=== PATIENT | female | born 1945 | race Caucasian/White ===

== ENCOUNTER → 2016-09-12 | Outpatient (CLI) | payer OTHER ==
[~2016-09-12] MED LIST: ALEN70TA2 PO; BISA10SU38 PR; BOOST PO; CALC500C3; CHOL1CAP57 PO; CYAN500T PO; DICL1GEL28 TD; FERR1TAB13 PO; FLV1 PO; GABA-113 PO; LRS10 PO; METO25TA3 PO; MOML PO; MULT-116 PO; OXGN; POLY99.02 OP; PRNJ PO; SENN-65 PO; SULF800T23 PO; TYLOTC500 PO; ULT/50 PO; [UNRECOGNIZED DRUG - OTHER] INJ
== END ==
LOC: C.LABCC 17:25
PROVIDERS: ATTEND Internal Medicine
DX: R50.9 Fever, unspecified (principal); R05 Cough

== ENCOUNTER → 2016-10-07 | Outpatient (CLI) | payer OTHER | LOC: C.LABCC 09:37 | PROVIDERS: ATTEND Internal Medicine | DX: L89.90 Pressure ulcer of unspecified site, unspecified stage (principal) ==

== ENCOUNTER → 2016-10-08 | Outpatient (CLI) | payer OTHER ==
[2016-10-08 08:27] LABS: BASO % 0.4 %; BASO ABS # 0.03 K/uL (0-0.2); COMPLETE YES; EOS % 2.4 %; HEMATOCRIT 36.3 % (37-47); IG% 0.9 %; LYMPH % 24.3 %; LYMPH ABS # 2.05 K/uL (1.2-3.4); MEAN CELL VOLUME 97.1 fL (80-100); MEAN PLATELET VOLUME 11.1 fL (7.4-10.4); MONO % 14.5 %; NEUT % 57.5 %; PLATELET COUNT 292 K/uL (130-400); RED BLOOD COUNT 3.74 M/uL (4.2-5.4); WHITE BLOOD COUNT 8.43 K/uL (4.8-10.8)
[2016-10-08 08:38] LABS: BLOOD UREA NITROGEN 13 mg/dl (7-18); BUN/CREATININE RATIO 18.4 (10-20); CARBON DIOXIDE 29 mmol/L (21-32); CHLORIDE 107 mmol/L (98-107); CREATININE 0.73 mg/dl (0.60-1.20); GLUCOSE 90 mg/dl (70-99); SODIUM 142 mmol/L (136-145)
[2016-10-08 09:00] LABS: CALCIUM 8.6 mg/dl (8.5-10.1)
== END ==
LOC: C.LABCC 08:03
PROVIDERS: ATTEND Internal Medicine
DX: H92.01 Otalgia, right ear (principal); R05 Cough

== ENCOUNTER → 2016-11-25 | Outpatient (CLI) | payer OTHER | LOC: C.LABCC 12:49 | PROVIDERS: ATTEND Internal Medicine | DX: T14.8 Other injury of unspecified body region (principal); X58.XXXA Exposure to other specified factors, initial encounter ==

== ENCOUNTER → 2017-01-12 | Outpatient (CLI) | payer OTHER ==
[2017-01-13 02:37] LABS: URINE APPEARANCE TURBID (CLEAR); URINE BILIRUBIN NEG (NEG); URINE COLOR DK YELLOW; URINE EPITHELIAL CELL AUTO >30 /lpf (0-5); URINE NITRITE POS (NEG); URINE PH >= 9.0 (4.5-7.5); URINE SPECIFIC GRAVITY 1.018 (1.000-1.030); UROBILINOGEN NEG (NEG)
[2017-01-13 02:55] LABS: MANUAL MICROSCOPIC REQUIRED? NO; REVIEW REQ? YES
[2017-01-13 02:56] LABS: SULFASALICYLIC ACID NEG (NEG)
== END ==
LOC: C.LABCC 19:00
PROVIDERS: ATTEND Internal Medicine
DX: R50.9 Fever, unspecified (principal); R39.9 Unspecified symptoms and signs involving the genitourinary system

== ENCOUNTER → 2017-01-18 | Outpatient (CLI) | payer OTHER ==
[2017-01-18 17:00] LABS: URINE APPEARANCE CLOUDY (CLEAR); URINE BILIRUBIN NEG (NEG); URINE COLOR YELLOW; URINE NITRITE POS (NEG); URINE PH 8.5 (4.5-7.5); URINE SPECIFIC GRAVITY 1.014 (1.000-1.030); UROBILINOGEN NEG (NEG)
[2017-01-18 17:07] LABS: MANUAL MICROSCOPIC REQUIRED? NO; REVIEW REQ? YES; SULFASALICYLIC ACID NEG (NEG)
== END ==
LOC: C.LABCC 09:58
PROVIDERS: ATTEND Internal Medicine
DX: R50.9 Fever, unspecified (principal)

== ENCOUNTER → 2017-01-22 | Outpatient (CLI) | payer OTHER | END | disposition home or self-care (01) | LOC: C.LABCC 10:11 | PROVIDERS: ATTEND Internal Medicine | DX: T81.9XXA Unspecified complication of procedure, initial encounter (principal); X58.XXXA Exposure to other specified factors, initial encounter ==

== ENCOUNTER → 2017-01-23 | Outpatient (CLI) | payer OTHER ==
[2017-01-23 09:29] LABS: BLOOD UREA NITROGEN 27 mg/dl (7-18); CREATININE 0.79 mg/dl (0.60-1.20)
== END ==
LOC: C.LABCC 08:51
PROVIDERS: ATTEND Internal Medicine
DX: Z01.812 Encounter for preprocedural laboratory examination (principal)

== ENCOUNTER → 2017-01-24 | Outpatient (CLI) | payer OTHER ==
[~2017-01-24] MED LIST changes: +GADAVIST IV PRN
--- NOTE | 2017-01-24 09:57 | DIAGNOSTIC IMAGING REPORT ---
PELVIC COMBO CLINICAL HISTORY: 71 years-old Female presenting with OSTEOMYLITIS, nonhealing wound over the right ischium. TECHNIQUE: Multisequence, multiplanar MR imaging of the pelvis was performed before and after the administration of intravenous contrast. IV contrast: 5 mL of Gadavist. COMPARISON: CT from 2011. FINDINGS: Localizer images: The endometrium is heterogeneously expanded with a multicystic appearance and measuring 23 mm in thickness. Focal soft tissue defect overlying the right ischium consistent with decubitus ulcer, which tracks to the right ischial cortex. Normal T1 hyperintensity of the bone marrow within the right ischium. Overall heterogeneity of bone marrow signal intensity on T1-weighted imaging. Minimal bony edema on T2-weighted imaging is evident in the right ischium as well as surrounding soft tissue edema, primarily in the right hamstrings and right abductor muscle group. Mild intramuscular enhancement on postcontrast imaging. No focal fluid collection. Hip joints appear normal and are uninvolved. Possible limited decubitus ulcer noted along the right aspect of the sacrococcygeal region with skin thickening and subcutaneous infiltration, although the absence of T2 hyperintensity may suggest a skin fold instead of ulceration. Intrapelvic soft tissues demonstrated endometrial thickening and a small subserosal uterine fibroid. Multiple bladder diverticula. No focal bladder wall thickening. No lymphadenopathy. Bowel normal. IMPRESSION: 1. Right ischial decubitus ulcer. No convincing evidence of subjacent osteomyelitis of the right ischium, although minimal reactive edema is present. 2. Questionable decubitus ulcer overlying the right aspect of the sacrococcygeal region. Correlate clinically. 3. Thickened endometrium on expected in a postmenopausal female. This is concerning for endometrial neoplasm, although other etiologies including tamoxifen therapy and endometrial hyperplasia may also have this appearance. Gynecologic consultation for endometrial biopsy should be obtained. The report will be called/faxed according to standard departmental protocol. Electronically signed by: Migel Naik M.D. 01/24/2017 9:56 AM Dictated Date/Time: 01/24/2017 9:47 AM
== END ==
LOC: C.MRI 07:45
PROVIDERS: ATTEND Internal Medicine
DX: L89.219 Pressure ulcer of right hip, unspecified stage (principal)

== ENCOUNTER → 2017-01-30 | Day surgery (SDC) | payer OTHER ==
[~2017-01-30] VITALS: Ht 152.4 cm; Wt 52.0 kg
[~2017-01-30] MED LIST changes: -GADAVIST IV PRN
[2017-01-30 10:07] VITALS: BP 115/74; PULSE 96; TEMP 37.2; O2SAT 97; Ht 152.4 cm; Wt 52.0 kg
[2017-01-30 12:33] VITALS: BP 115/66; PULSE 70
== END | disposition home or self-care (01) ==
LOC: C.MTU 09:50
PROVIDERS: ATTEND Internal Medicine
DX: M86.151 Other acute osteomyelitis, right femur (principal); G35 Multiple sclerosis; Z90.49 Acquired absence of other specified parts of digestive tract; J18.0 Bronchopneumonia, unspecified organism; N17.9 Acute kidney failure, unspecified; I10 Essential (primary) hypertension; R41.82 Altered mental status, unspecified; R32 Unspecified urinary incontinence

== ENCOUNTER → 2017-02-06 | Outpatient (CLI) | payer OTHER ==
[2017-02-06 09:24] LABS: BLOOD UREA NITROGEN 14 mg/dl (7-18); BUN/CREATININE RATIO 19.4 (10-20); CALCIUM 8.7 mg/dl (8.5-10.1); CARBON DIOXIDE 28 mmol/L (21-32); CHLORIDE 110 mmol/L (98-107); GLUCOSE 80 mg/dl (70-99); POTASSIUM 3.9 mmol/L (3.5-5.1); SODIUM 143 mmol/L (136-145)
== END ==
LOC: C.LABCC 08:11
PROVIDERS: ATTEND Internal Medicine
DX: Z51.81 Encounter for therapeutic drug level monitoring (principal); Z79.2 Long term (current) use of antibiotics

== ENCOUNTER → 2017-02-17 | Outpatient (CLI) | payer OTHER ==
[2017-02-17 18:16] LABS: BASO % 0.5 %; BASO ABS # 0.04 K/uL (0-0.2); COMPLETE YES; EOS % 3.4 %; HEMATOCRIT 31.3 % (37-47); IG% 0.5 %; LYMPH % 41.7 %; LYMPH ABS # 3.08 K/uL (1.2-3.4); MEAN CELL VOLUME 96.9 fL (80-100); MEAN CORPUSCULAR HEMOGLOBIN 31.6 pg (25-34); MEAN CORPUSCULAR HGB CONC 32.6 g/dl (32-36); MEAN PLATELET VOLUME 12.2 fL (7.4-10.4); MONO % 12.5 %; NEUT % 41.4 %; PLATELET COUNT 336 K/uL (130-400); RED BLOOD COUNT 3.23 M/uL (4.2-5.4); WHITE BLOOD COUNT 7.38 K/uL (4.8-10.8)
[2017-02-17 20:12] LABS: INFLUENZA A PCR Neg for Influ A (NEG); INFLUENZA B PCR Neg for Influ B (NEG)
== END ==
LOC: C.LABCC 17:25
PROVIDERS: ATTEND Internal Medicine
DX: R50.9 Fever, unspecified (principal)

== ENCOUNTER → 2017-02-18 | Outpatient (CLI) | payer OTHER ==
[2017-02-18 08:21] LABS: ALT/SGPT 45 U/L (12-78); BLOOD UREA NITROGEN 11 mg/dl (7-18); BUN/CREATININE RATIO 17.5 (10-20); CALCIUM 8.2 mg/dl (8.5-10.1); CARBON DIOXIDE 27 mmol/L (21-32); CHLORIDE 110 mmol/L (98-107); GLUCOSE 79 mg/dl (70-99); POTASSIUM 3.8 mmol/L (3.5-5.1); SODIUM 143 mmol/L (136-145)
[2017-02-18 08:24] LABS: ALB/GLOB RATIO 0.6 (0.9-2); ALKALINE PHOSPHATASE 131 U/L (45-117); AST/SGOT 52 U/L (15-37)
== END ==
LOC: C.LABCC 07:48
PROVIDERS: ATTEND Internal Medicine
DX: R50.9 Fever, unspecified (principal)

== ENCOUNTER → 2017-02-19 | Outpatient (CLI) | payer OTHER ==
[2017-02-19 19:06] LABS: MANUAL MICROSCOPIC REQUIRED? NO; URINE APPEARANCE SL CLOUDY (CLEAR); URINE BILIRUBIN NEG (NEG); URINE COLOR YELLOW; URINE NITRITE NEG (NEG); URINE SPECIFIC GRAVITY 1.025 (1.000-1.030); UROBILINOGEN NEG (NEG)
[2017-02-19 19:10] LABS: REVIEW REQ? NO
== END ==
LOC: C.LABCC 17:38
PROVIDERS: ATTEND Internal Medicine
DX: R50.9 Fever, unspecified (principal)

== ENCOUNTER → 2017-02-25 | Outpatient (CLI) | payer OTHER ==
[2017-02-25 08:40] LABS: ALKALINE PHOSPHATASE 133 U/L (45-117); ALT/SGPT 53 U/L (12-78); AST/SGOT 82 U/L (15-37)
== END ==
LOC: C.LABCC 08:01
PROVIDERS: ATTEND Internal Medicine
DX: R74.8 Abnormal levels of other serum enzymes (principal)

== ENCOUNTER → 2017-02-26 | Outpatient (CLI) | payer OTHER ==
[2017-02-26 09:53] LABS: HEMATOCRIT 32.4 % (37-47); MEAN CELL VOLUME 96.4 fL (80-100); MEAN CORPUSCULAR HEMOGLOBIN 30.4 pg (25-34); MEAN CORPUSCULAR HGB CONC 31.5 g/dl (32-36); PLATELET COUNT 194 K/uL (130-400); RED BLOOD COUNT 3.36 M/uL (4.2-5.4); WHITE BLOOD COUNT 7.42 K/uL (4.8-10.8)
== END ==
LOC: C.LABCC 09:05
PROVIDERS: ATTEND Internal Medicine
DX: D64.9 Anemia, unspecified (principal)

== ENCOUNTER → 2017-03-14 | Outpatient (CLI) | payer OTHER ==
[2017-03-14 09:43] LABS: BASO % 0.4 %; BASO ABS # 0.03 K/uL (0-0.2); COMPLETE YES; HEMATOCRIT 34.5 % (37-47); IG% 0.5 %; LYMPH % 33.5 %; LYMPH ABS # 2.85 K/uL (1.2-3.4); MEAN CELL VOLUME 98.3 fL (80-100); MEAN CORPUSCULAR HEMOGLOBIN 30.5 pg (25-34); MEAN PLATELET VOLUME 13.1 fL (7.4-10.4); MONO % 13.7 %; NEUT % 45.9 %; PLATELET COUNT 217 K/uL (130-400); RED BLOOD COUNT 3.51 M/uL (4.2-5.4); WHITE BLOOD COUNT 8.52 K/uL (4.8-10.8)
== END | disposition home or self-care (01) ==
LOC: C.LABCC 09:07
PROVIDERS: ATTEND Internal Medicine
DX: D64.9 Anemia, unspecified (principal)

== ENCOUNTER → 2017-06-20 | Outpatient (CLI) | payer OTHER | LOC: C.LABCC 22:30 | PROVIDERS: ATTEND Internal Medicine | DX: S31.809A Unspecified open wound of unspecified buttock, initial encounter (principal); X58.XXXA Exposure to other specified factors, initial encounter ==

== ENCOUNTER → 2017-08-06 | Outpatient (CLI) | payer OTHER ==
[~2017-08-06] MED LIST changes: -METO25TA3 PO; +METO25TA4 PO
[2017-08-06 10:36] LABS: BASO % 0.4 %; BASO ABS # 0.04 K/uL (0-0.2); EOS % 4.1 %; EOS ABS # 0.42 K/uL (0-0.5); HEMATOCRIT 35.8 % (37-47); HEMOGLOBIN 11.7 g/dL (12.0-16.0); IG# 0.09 K/uL (0.00-0.02); LYMPH % 32.7 %; LYMPH ABS # 3.36 K/uL (1.2-3.4); MEAN CELL VOLUME 98.4 fL (80-100); MEAN CORPUSCULAR HEMOGLOBIN 32.1 pg (25-34); MEAN CORPUSCULAR HGB CONC 32.7 g/dl (32-36); MEAN PLATELET VOLUME 11.2 fL (7.4-10.4); MONO % 13.5 %; MONO ABS # 1.39 K/uL (0.11-0.59); NEUT % 48.4 %; NEUT ABS # 4.96 K/uL (1.4-6.5); PLATELET COUNT 295 K/uL (130-400); RED CELL DISTRIBUTION WIDTH CV 14.1 % (11.5-14.5); RED CELL DISTRIBUTION WIDTH SD 50.7 fL (36.4-46.3); WHITE BLOOD COUNT 10.26 K/uL (4.8-10.8)
[2017-08-06 11:06] LABS: ALBUMIN 2.5 gm/dl (3.4-5.0); ALT/SGPT 44 U/L (12-78); AST/SGOT 33 U/L (15-37); BLOOD UREA NITROGEN 21 mg/dl (7-18); CALCIUM 8.5 mg/dl (8.5-10.1); CARBON DIOXIDE 25 mmol/L (21-32); CREATININE 0.71 mg/dl (0.60-1.20); GLUCOSE 82 mg/dl (70-99); SODIUM 140 mmol/L (136-145)
[2017-08-06 11:09] LABS: ALKALINE PHOSPHATASE 205 U/L (45-117); TOTAL PROTEIN 6.4 gm/dl (6.4-8.2)
== END ==
LOC: C.LABCC 09:59
PROVIDERS: ATTEND Internal Medicine
DX: M86.9 Osteomyelitis, unspecified (principal)

== ENCOUNTER → 2017-08-13 | Outpatient (CLI) | payer OTHER ==
[2017-08-13 09:15] LABS: BASO % 0.6 %; BASO ABS # 0.05 K/uL (0-0.2); EOS % 4.2 %; EOS ABS # 0.38 K/uL (0-0.5); HEMOGLOBIN 11.7 g/dL (12.0-16.0); IG# 0.05 K/uL (0.00-0.02); LYMPH % 28.7 %; LYMPH ABS # 2.58 K/uL (1.2-3.4); MEAN CELL VOLUME 98.1 fL (80-100); MEAN CORPUSCULAR HGB CONC 31.6 g/dl (32-36); MEAN PLATELET VOLUME 11.2 fL (7.4-10.4); MONO % 16.4 %; MONO ABS # 1.48 K/uL (0.11-0.59); NEUT % 49.5 %; NEUT ABS # 4.46 K/uL (1.4-6.5); PLATELET COUNT 262 K/uL (130-400); RED CELL DISTRIBUTION WIDTH CV 14.1 % (11.5-14.5); RED CELL DISTRIBUTION WIDTH SD 50.8 fL (36.4-46.3)
[2017-08-13 09:26] LABS: ALBUMIN 2.6 gm/dl (3.4-5.0); ALT/SGPT 36 U/L (12-78); BLOOD UREA NITROGEN 26 mg/dl (7-18); CALCIUM 8.8 mg/dl (8.5-10.1); CARBON DIOXIDE 25 mmol/L (21-32); CREATININE 0.82 mg/dl (0.60-1.20); GLUCOSE 85 mg/dl (70-99); SODIUM 141 mmol/L (136-145)
[2017-08-13 09:29] LABS: ALKALINE PHOSPHATASE 133 U/L (45-117); AST/SGOT 36 U/L (15-37); TOTAL PROTEIN 6.4 gm/dl (6.4-8.2)
== END ==
LOC: C.LABCC 08:44
PROVIDERS: ATTEND Internal Medicine
DX: M86.9 Osteomyelitis, unspecified (principal)

== ENCOUNTER → 2017-10-03 | Outpatient (CLI) | payer OTHER ==
[~2017-10-03] MED LIST changes: +ACET-1311 PO; +ASCO500T16 PO; +BACL10TA PO; +CARB6.5D11 OTL; +FOLI1TAB8 PO; +IPRASOL4 INH; +NITR1CAP16 PO; +POLY99.0 OPB; +PROT1POW PO; +SACC250C PO; +SENN1TAB65 PO; +TPRSR/50 PO; +[UNRECOGNIZED DRUG - CODE] SQ
== END ==
LOC: C.LABCC 16:27
PROVIDERS: ATTEND Internal Medicine
DX: T81.9XXA Unspecified complication of procedure, initial encounter (principal); X58.XXXA Exposure to other specified factors, initial encounter

== ENCOUNTER 2017-10-04 00:19 | Emergency (ER) | payer OTHER ==
[~2017-10-04] VITALS: Ht 152.4 cm; Wt 51.8 kg
[~2017-10-04 00:19] MED LIST changes: -ACET-1311 PO; -ASCO500T16 PO; -BACL10TA PO; -CARB6.5D11 OTL; -FOLI1TAB8 PO; -IPRASOL4 INH; -NITR1CAP16 PO; -POLY99.0 OPB; -PROT1POW PO; -SACC250C PO; -SENN1TAB65 PO; -TPRSR/50 PO; -[UNRECOGNIZED DRUG - CODE] SQ
[2017-10-04 00:25] VITALS: Ht 152.4 cm; Wt 51.8 kg
[2017-10-04] MEDS ORDERED: PROT1POW PO (00:55)
[2017-10-04] MEDS ORDERED: ACET-1311 PO (00:57)
--- NOTE | 2017-10-04 00:57 | EMERGENCY ROOM VISIT NOTE ---
History Report prepared by Wood: Sharon Lobo Under the Supervision of: Dr. China Rush D.O. First contact with patient: 00:27 Chief Complaint: FEVER Stated Complaint: FEVER History of Present Illness The patient is a 72 year old female who presents to the Emergency Room with complaints of a episode of a fever occurring just prior to arrival. The patient had a fever of 101 degrees Fahrenheit. She comes from [facility]. Per nursing , the patient's wound vac was changed this morning which had more drainage than normal with a foul smell. The physician from [facility] ordered wound cultures which weren't completed per nursing. When the patient spiked a fever, just prior to arrival, [facility] removed her wound vac and sent her to the ED. She has a history of MS. The patient has had the wound on her right buttock for about 2 years. Per , the patient has been on and off of antibiotics for the past 2 years for her wound. The patient denies any chest pain, shortness of breath, nausea, abdominal pain, or vomiting. Source of History: patient, spouse/significant other, nursing staff Onset: just prior to arrival Position: other (generalized) Quality: other (fever) Timing: other (episode) Associated Symptoms: + fevers, No chest pain, No SOB, No nausea, No vomiting , No abdominal pain Review of Systems See HPI for pertinent positives & negatives. A total of 10 systems reviewed and were otherwise negative. Past Medical & Surgical Medical Problems: (1) Altered Mental Status (2) Anemia Nos (3) Fever, Unspecified (4) Hypertension Nos (5) Hypothyroidism Nos (6) Multiple sclerosis (7) Osteoporosis Nos (8) Oth Malaise&Fatigue Family History Patient reports no known family medical history. Social History Smoking Status: Never Smoker Alcohol Use: none Drug Use: none Marital Status: Housing Status: group home Occupation Status: disabled Current/Historical Medications Scheduled Ascorbic Acid (Ascorbic Acid), 500 MG PO BID Baclofen (Lioresal), 10 MG PO HS Bisacodyl (Dulcolax), 1 SUPP MD PRN Calcium Carbonate (Tums), 1 TAB TID Carbamide Peroxide (Otic) (Ear Drops), 5 DROPS OTL WK Cholecalciferol (Vitamin D3), 1,000 UNITS PO DAILY Cyanocobalamin (Vitamin B-12), 500 MCG PO QAM Diclofenac Sod (Voltaren 1% Top Gel), 2 GM TD QID Ferrous Sulfate (Kp Ferrous Sulfate), 325 MG PO BID Folic Acid (Folvite), 1 MG PO QAM Gabapentin (Neurontin), 300 MG PO TID Interferon Beta-1B (Betaseron), 0.3 MG SQ Q2D Magnesium Hydroxide (Milk Of Magnesia), 30 ML PO PRN Metoprolol Succinate (Metoprolol Succinate ER), 50 MG PO QAM Multiple Vitamins W/ Minerals (Theragran-M), 1 TAB PO QAM Nitrofurantoin Monohyd Macro (Macrobid), 100 MG PO BID Polyvinyl Alcohol (Artificial Tears), 2 DROPS OPB TID Protein (Protein), 1 TBS PO DAILY Prune Juice (Prune Juice ), 8 OZ PO PRN Saccharomyces Boulardii (Florastor), 250 MG PO QAM Sennosides-Docusate Sodium (Senna Plus), 2 TABS PO BID Tramadol Hcl (Ultram), 50 MG PO BID Scheduled PRN Acetaminophen (Tylenol), 650 MG PO Q4H PRN for MILD PAIN Ipratropium-Albuterol (Duoneb), 3 ML INH Q6H PRN for Wheezing Allergies Coded Allergies: Penicillins (Verified Allergy, Unknown, 06/30/09) Physical Exam Vital Signs Date Time Temp Pulse Resp B/P (MAP) Pulse Ox O2 Delivery O2 Flow Rate FiO2 10/04/17 04:12 36.8 74 13 104/59 100 10/04/17 02:16 72 13 107/59 100 Nasal Cannula 2.0 10/04/17 00:45 78 10/04/17 00:25 37.2 86 20 125/78 98 Nasal Cannula 2.0 10/04/17 00:25 Nasal Cannula 2.0 Physical Exam General: Patient is pleasant with no complaints HEENT: Head - normocephalic and atraumatic Pupils are equal, round, and reactive to light. Extraocular eye muscles are intact, and sclera are anicteric. Nose - moist nasal mucosa without discharge. Mouth - moist buccal mucosa. Oropharynx is nonerythematous and there is no tonsillar exudate or edema noted. Neck: Supple; no JVD, nuchal rigidity, cervical lymphadenopathy. Heart: Regular rate and rhythm. There is a normal S1 and S2 with no murmurs, clicks, or gallops appreciated. Lungs: Clear to auscultation bilaterally with no wheezes, rales, or rhonchi. Abdomen: Soft, completely nontender, nondistended, with good bowel sounds. There are no palpable pulsatile masses or hepatosplenomegaly. There is no guarding, rigidity, or rebound noted. Extremities: Deep wound on right buttock. I did not appreciate any foul smelling drainage. The wound had no surrounding erythema. No evidence of cyanosis, clubbing, or edema to the extremities. There are easily palpable peripheral pulses. Skin: warm and dry with good turgor and no rashes. Medical Decision & Procedures ER Provider Diagnostic Interpretation: Radiology results as stated below per my review: Chest X-ray: poor inspiratory effort, no obvious pneumonia or infiltrate. Laboratory Results 10/04/17 01:10 Red Blood Count 3.37, Mean Corpuscular Volume 98.5, Mean Corpuscular Hemoglobin 31.2, Mean Corpuscular Hemoglobin Concent 31.6, Mean Platelet Volume 10.2, Neutrophils (%) (Auto) 68.6, Lymphocytes (%) (Auto) 15.6, Monocytes (%) (Auto) 12.5, Eosinophils (%) (Auto) 2.0, Basophils (%) (Auto) 0.2, Neutrophils # (Auto ) 7.06, Lymphocytes # (Auto) 1.60, Monocytes # (Auto) 1.28, Eosinophils # (Auto ) 0.21, Basophils # (Auto) 0.02 10/04/17 01:10 Test 10/04/17 00:57 10/04/17 01:10 10/04/17 01:15 Urine Color YELLOW Urine Appearance CLOUDY (CLEAR) Urine pH 5.5 (4.5-7.5) Urine Specific [place] 1.016 (1.000-1.030) Urine Protein TRACE (NEG) Urine Glucose (UA) NEG (NEG) Urine Ketones NEG (NEG) Urine Occult Blood TRACE (NEG) Urine Nitrite POS (NEG) Urine Bilirubin NEG (NEG) Urine Urobilinogen NEG (NEG) Urine Leukocyte Esterase LARGE (NEG) Urine WBC (Auto) >30 /hpf (0-5) Urine RBC (Auto) 0-4 /hpf (0-4) Urine Hyaline Casts (Auto) 1-5 /lpf (0-5) Urine Epithelial Cells (Auto) 20-30 /lpf (0-5) Urine Bacteria (Auto) 4+ (NEG) Urine Yeast (Auto) (NONE PRSENT) White Blood Count 10.28 K/uL (4.8-10.8) Red Blood Count 3.37 M/uL (4.2-5.4) Hemoglobin 10.5 g/dL (12.0-16.0) Hematocrit 33.2 % (37-47) Mean Corpuscular Volume 98.5 fL (80-100) Mean Corpuscular Hemoglobin 31.2 pg (25-34) Mean Corpuscular Hemoglobin Concent 31.6 g/dl (32-36) Platelet Count 371 K/uL (130-400) Mean Platelet Volume 10.2 fL (7.4-10.4) Neutrophils (%) (Auto) 68.6 % Lymphocytes (%) (Auto) 15.6 % Monocytes (%) (Auto) 12.5 % Eosinophils (%) (Auto) 2.0 % Basophils (%) (Auto) 0.2 % Neutrophils # (Auto) 7.06 K/uL (1.4-6.5) Lymphocytes # (Auto) 1.60 K/uL (1.2-3.4) Monocytes # (Auto) 1.28 K/uL (0.11-0.59) Eosinophils # (Auto) 0.21 K/uL (0-0.5) Basophils # (Auto) 0.02 K/uL (0-0.2) RDW Standard Deviation 46.9 fL (36.4-46.3) RDW Coefficient of Variation 13.0 % (11.5-14.5) Immature Granulocyte % (Auto) 1.1 % Immature Granulocyte # (Auto) 0.11 K/uL (0.00-0.02) Prothrombin Time 10.4 SECONDS (9.0-12.0) Prothromb Time International Ratio 1.0 (0.9-1.1) Activated Partial Thromboplast Time 31.8 SECONDS (21.0-31.0) Partial Thromboplastin Ratio 1.2 Anion Gap 3.0 mmol/L (3-11) Est Creatinine Clear Calc Drug Dose 43.5 ml/min Estimated GFR () 80.5 Estimated GFR (Non- 69.4 BUN/Creatinine Ratio 17.4 (10-20) Calcium Level 8.2 mg/dl (8.5-10.1) Total Bilirubin 0.2 mg/dl (0.2-1) Aspartate Amino Transf (AST/SGOT) 29 U/L (15-37) Alanine Aminotransferase (ALT/SGPT) 29 U/L (12-78) Alkaline Phosphatase 179 U/L (45-117) Total Protein 6.7 gm/dl (6.4-8.2) Albumin 2.2 gm/dl (3.4-5.0) Globulin 4.5 gm/dl (2.5-4.0) Albumin/Globulin Ratio 0.5 (0.9-2) Bedside Lactic Acid Venous 1.84 mmol/L (0.90-1.70) Laboratory results per my review. Medications Administered Medications (Trade) Dose Ordered Sig/Rajinder Route Start Time Stop Time Status Last Admin Dose Admin Ceftriaxone Sodium (Rocephin Inj) 1 gm NOW STAT IV 10/04/17 02:53 10/04/17 02:54 DC 10/04/17 02:53 1 GM Procedure Rocephin Inj IV. ECG Per My Interpretation Indication: other (fever) Rate (beats per minute): 70 Rhythm: normal sinus Findings: no acute ischemic change, no ectopy, other (no ST segment changes) ED Course 0045: Past medical records reviewed. The patient was evaluated in room B12B. A complete history and physical exam was performed. A septic protocol was performed. A urine specimen was obtained. 0140: I looked back through multiple wound culture results and urine culture results. 0253: Ordered Rocephin Inj 1 gm IV. 0256: The patient reports she feels well and is still asymptomatic. 0346: Upon reevaluation, the patient is resting comfortably. I discussed findings and results with her. She verbalized agreement of the treatment plan. The patient was discharged home. Medical Decision The patient is a 72 year old female who presents to the Emergency Room with complaints of a episode of a fever occurring just prior to arrival. Differential diagnosis includes wound infection, UTI, or sepsis Lab results show: no leukocytosis, stable H and H, lactic acid 1.8, normal renal function and glucose, normal LFTs. Urine shows: trace blood, positive nitrite, large leukocyte esterase, 4+ bacteria, greater than 30 white blood cell count. The patient has a long-standing history of a wound to the right buttock. She is being treated by the wound care clinic and had a wound VAC in place. When nursing staff remove this at [facility], there seemed to be a foul smell to the wound as well as some increased drainage. They were concerned that the patient has developed yet another infection in that wound. The patient had a slight fever. She had no increased pain to that right buttock. A septic protocol was performed. Her urinalysis appeared to be infected. I reviewed multiple previous urinary cultures. She typically has E. coli. It has been sensitive in the past to Macrobid. I will start the patient on Macrobid until cultures return for the urine as well as the wound. They were instructed to return to the emergency department immediately if the patient has worsening symptoms fever. Medication Reconcilliation Current Medication List: was personally reviewed by me Blood Pressure Screening Patient's blood pressure: Normal blood pressure Impression Primary Impression: UTI (urinary tract infection) Additional Impression: Possible wound infection Scribe Attestation The scribe's documentation has been prepared under my direction and personally reviewed by me in its entirety. I confirm that the note above accurately reflects all work, treatment, procedures, and medical decision making performed by me. Departure Information Dispostion Home / Self-Care Prescriptions Nitrofurantoin Monohyd Macro (MACROBID) 100 Mg Cap 100 MG PO BID, #20 CAP Prov: China Rush D.OMaritza 10/04/17 Referrals [facility] (PCP) Forms HOME CARE DOCUMENTATION FORM, IMPORTANT VISIT INFORMATION Patient Instructions My [facility], UTI Additional Instructions Watch her closely for further signs of wound infection. The urine appears to be infected. We will treat her for UTI until the urine and wound culture return. She should be rechecked on Friday by PCP Problem Qualifiers Primary Impression: UTI (urinary tract infection) Urinary tract infection type: acute cystitis Hematuria presence: without hematuria Qualified Codes: N30.00 - Acute cystitis without hematuria
[2017-10-04] MEDS ORDERED: POLY99.0 OPB (00:59)
[2017-10-04] MEDS ORDERED: BACL10TA PO (01:01)
[2017-10-04] MEDS ORDERED: [UNRECOGNIZED DRUG - CODE] SQ (01:03)
[2017-10-04] MEDS ORDERED: CARB6.5D11 OTL (01:06)
[2017-10-04] MEDS ORDERED: FOLI1TAB8 PO (01:09)
[2017-10-04] MEDS ORDERED: IPRASOL4 INH (01:13)
[2017-10-04] MEDS ORDERED: TPRSR/50 PO (01:14)
[2017-10-04] MEDS ORDERED: SACC250C PO (01:17)
[2017-10-04] MEDS ORDERED: SENN1TAB65 PO (01:19)
[2017-10-04] MEDS ORDERED: ASCO500T16 PO (01:21)
[2017-10-04 01:25] LABS: BASO % 0.2 %; BASO ABS # 0.02 K/uL (0-0.2); EOS ABS # 0.21 K/uL (0-0.5); HEMATOCRIT 33.2 % (37-47); HEMOGLOBIN 10.5 g/dL (12.0-16.0); IG# 0.11 K/uL (0.00-0.02); LYMPH % 15.6 %; MEAN CELL VOLUME 98.5 fL (80-100); MEAN CORPUSCULAR HEMOGLOBIN 31.2 pg (25-34); MEAN CORPUSCULAR HGB CONC 31.6 g/dl (32-36); MEAN PLATELET VOLUME 10.2 fL (7.4-10.4); MONO % 12.5 %; MONO ABS # 1.28 K/uL (0.11-0.59); NEUT % 68.6 %; NEUT ABS # 7.06 K/uL (1.4-6.5); PLATELET COUNT 371 K/uL (130-400); RED CELL DISTRIBUTION WIDTH SD 46.9 fL (36.4-46.3); WHITE BLOOD COUNT 10.28 K/uL (4.8-10.8)
[2017-10-04 01:37] LABS: PTT PATIENT 31.8 SECONDS (21.0-31.0)
[2017-10-04 01:42] LABS: ALBUMIN 2.2 gm/dl (3.4-5.0); CALCIUM 8.2 mg/dl (8.5-10.1); CREATININE 0.84 mg/dl (0.60-1.20); POTASSIUM 4.5 mmol/L (3.5-5.1)
[2017-10-04 01:44] LABS: TOTAL PROTEIN 6.7 gm/dl (6.4-8.2)
[2017-10-04] MEDS ORDERED: CEFTRIAXONE SOD INJ 1 GM ADDVIAL IV STA (02:53)
[2017-10-04] MEDS ORDERED: NITR1CAP16 PO (03:42)
[2017-10-04 04:12] VITALS: BP 104/59; PULSE 74; TEMP 36.8; O2SAT 100
--- NOTE | 2017-10-04 06:35 | DIAGNOSTIC IMAGING REPORT ---
CHEST ONE VIEW PORTABLE HISTORY: 72 years-old Female Sepsis acute sepsis COMPARISON: Chest radiographs 10/19/2013 TECHNIQUE: Portable AP view of the chest FINDINGS: Cardiac silhouette is mildly enlarged, unchanged. Mild right hemidiaphragmatic elevation with blunting of the right costophrenic angle. No pneumothorax or large pleural effusion. Subsegmental bibasilar opacities appear unchanged suggesting atelectasis. Ill-defined opacities of the lateral right midlung. The patient is rotated to the left. Degenerative changes of the shoulders and spine. IMPRESSION: 1. Cardiomegaly without overt pulmonary edema. 2. Ill-defined opacities of the lateral right midlung may reflect composite density artifact from pulmonary vasculature with a subtle developing airspace disease also considered. 3. Subsegmental bibasilar opacities suggest atelectasis. The above report was generated using voice recognition software. It may contain grammatical, syntax or spelling errors. Electronically signed by: Maximo Ferrer M.D. 10/04/2017 6:33 AM Dictated Date/Time: 10/04/2017 6:31 AM
--- NOTE | 2017-10-06 13:39 | Pharmacy Progress Note ---
ED Pharmacist Culture FollowUp Date of Service: October 06, 2017. MSSA isolated from deep wound culture on buttock. Called [facility] , spoke w Mei Valle (RN). Informed of positive culture result from wound culture with MSSA. Mei acknowledged understanding and requested result be faxed to [facility] , read back #. Faxed and confirmation received, JobID: [id number]. Mei confirmed management of results to be completed by [facility] providers. Per RN note 10/05, [facility] had already been notified of positive blood culture result.
== END 2017-10-04 04:14 | disposition home or self-care (01) ==
LOC: EDBD 00:19 → C.EDB 00:20
DX: N39.0 Urinary tract infection, site not specified (principal); S31.819D Unspecified open wound of right buttock, subsequent encounter; X58.XXXD Exposure to other specified factors, subsequent encounter; G35 Multiple sclerosis; I10 Essential (primary) hypertension; E03.9 Hypothyroidism, unspecified; M81.0 Age-related osteoporosis without current pathological fracture; Z79.899 Other long term (current) drug therapy; Z88.0 Allergy status to penicillin; S31.819A Unspecified open wound of right buttock, initial encounter

== ENCOUNTER → 2017-12-28 | Outpatient (CLI) | payer OTHER ==
[~2017-12-28] MED LIST changes: +ACET-1311 PO; -ALEN70TA2 PO; +ASCO500T16 PO; +BACL10TA PO; -BOOST PO; +CARB6.5D11 OTL; -FLV1 PO; +FOLI1TAB8 PO; +IPRA-64 INH; -LRS10 PO; -METO25TA4 PO; -OXGN; +POLY99.0 OPB; -POLY99.02 OP; +PROT1POW PO; +SACC250C PO; -SENN-65 PO; +SENN1TAB65 PO; -SULF800T23 PO; +TPRSR/50 PO; -TYLOTC500 PO; +[UNRECOGNIZED DRUG - CODE] SQ; -[UNRECOGNIZED DRUG - OTHER] INJ
== END ==
LOC: C.LABCC 23:00
PROVIDERS: ATTEND Internal Medicine
DX: R50.9 Fever, unspecified (principal)

== ENCOUNTER → 2018-01-16 | Outpatient (CLI) | payer OTHER ==
[2018-01-16 18:14] LABS: BASO % 0.2 %; BASO ABS # 0.02 K/uL (0-0.2); EOS % 1.4 %; EOS ABS # 0.17 K/uL (0-0.5); HEMATOCRIT 34.4 % (37-47); HEMOGLOBIN 10.5 g/dL (12.0-16.0); IG# 0.06 K/uL (0.00-0.02); LYMPH % 21.8 %; LYMPH ABS # 2.63 K/uL (1.2-3.4); MEAN CELL VOLUME 100.6 fL (80-100); MEAN CORPUSCULAR HEMOGLOBIN 30.7 pg (25-34); MEAN CORPUSCULAR HGB CONC 30.5 g/dl (32-36); MEAN PLATELET VOLUME 11.6 fL (7.4-10.4); MONO ABS # 1.09 K/uL (0.11-0.59); NEUT % 67.1 %; NEUT ABS # 8.09 K/uL (1.4-6.5); PLATELET COUNT 333 K/uL (130-400); RED CELL DISTRIBUTION WIDTH CV 14.3 % (11.5-14.5); RED CELL DISTRIBUTION WIDTH SD 52.2 fL (36.4-46.3); WHITE BLOOD COUNT 12.06 K/uL (4.8-10.8)
[2018-01-16 18:25] LABS: ALBUMIN 2.3 gm/dl (3.4-5.0); ALKALINE PHOSPHATASE 134 U/L (45-117); ALT/SGPT 35 U/L (12-78); AST/SGOT 36 U/L (15-37); BLOOD UREA NITROGEN 20 mg/dl (7-18); CALCIUM 8.8 mg/dl (8.5-10.1); CARBON DIOXIDE 26 mmol/L (21-32); CREATININE 0.79 mg/dl (0.60-1.20); GLUCOSE 150 mg/dl (70-99); SODIUM 142 mmol/L (136-145); TOTAL PROTEIN 6.4 gm/dl (6.4-8.2)
== END | disposition home or self-care (01) ==
LOC: C.LABCC 17:33
PROVIDERS: ATTEND Internal Medicine
DX: R50.9 Fever, unspecified (principal)

== ENCOUNTER → 2018-01-16 | Outpatient (CLI) | payer OTHER | LOC: C.LABCC 20:00 | PROVIDERS: ATTEND Internal Medicine | DX: R50.9 Fever, unspecified (principal); R82.90 Unspecified abnormal findings in urine ==